=== PATIENT | male | born 1955 | race Hispanic/Latino ===

== ENCOUNTER → 2017-04-07 | Day surgery (SDC) | payer OTHER ==
[~2017-04-07] VITALS: Ht 162.6 cm; Wt 81.0 kg
[~2017-04-07] MED LIST: HYDR-3825 PO; IBUP800T28 PO; OMEP20TA86 PO; PRED50TA PO; Sodium Chloride LOK Flush 10 mL Syringe IV PRN; fentaNYL-PF 50 mCg/mL 2 mL Inj IVPUSH PRN
[2017-04-07 09:34] VITALS: BP 110/69; PULSE 64; RESP 16; O2SAT 95
[2017-04-07] MEDS: 0.9% Sodium Chloride 1,000 ML IV SCH ×3 (10:12→10:34)
[2017-04-07 10:42] VITALS: BP 97/67; PULSE 60; RESP 16; O2SAT 95
[2017-04-07 10:52] VITALS: BP 95/61; PULSE 56; RESP 14; O2SAT 95
[2017-04-07 11:02] VITALS: BP 106/65; PULSE 66; RESP 16; O2SAT 97
--- NOTE | 2017-04-07 14:18 | ENDO ---
[address] [address] ENDOSCOPY PROCEDURE PATIENT: MAR BECKER : 1955 MR#: [id number] ADMIT: 04/07/2017 JOB ID: [id number] DATE OF SERVICE: 04/07/2017 TYPE OF OPERATION: Esophagogastroduodenoscopy with biopsy, and colonoscopy. Hot snare polypectomy x2. PREOPERATIVE DIAGNOSIS: History of Schrader esophagus and tubular adenoma polyps. POSTOPERATIVE DIAGNOSES: 1. Irregular Z-line, status post biopsy. 2. There were two 1-cm polyp seen in the sigmoid colon, 1 cm each, removed by hot snare polypectomy. ANESTHESIA: Fentanyl 75 mcg, Versed 5 mg IV administered. COMPLICATIONS: None. BLOOD LOSS: Minimal. DESCRIPTION OF PROCEDURE: After risks and benefits explained to the patient, informed consent was obtained. After anesthesia administered, upper endoscope was then inserted into mouth, intubated into the esophagus, stomach, second portion of duodenum. Mucosa carefully examined. After procedure was done, the scope was withdrawn, procedure terminated. A colonoscope was then inserted from the rectum to the cecum. Mucosa carefully examined. Prep of the patient was excellent. After the procedure was done, scope was withdrawn and the procedure terminated. FINDINGS: On inspection of the esophagus, esophagus appeared normal except for an irregular Z-line at the distal esophagus. Z-line located at 32 cm from incisors. Upon entering stomach, the stomach appeared normal without masses, ulcers, or lesions. Retroflexion was normal. Duodenal bulb, first and second portion normal. Biopsy taken of antrum, body, and four quadrant biopsies of the distal esophagus. Upon inspection of the anus, no masses, hemorrhoids, ulcers, fissures were seen throughout the entire examination. There were two polyps that were seen, 1 cm each, in the sigmoid colon, both removed by hot snare polypectomy. No other polyps or masses were seen. Retroflexion was normal. IMPRESSION: 1. Irregular Z-line, status post four quadrant biopsies. 2. Two polyps in the sigmoid colon, measuring 1 cm each, removed by hot snare polypectomy. RECOMMENDATIONS: 1. Await pathology results. 2. Repeat colonoscopy in one year. 3. Avoid NSAIDs for at least one week. 4. Follow up in GI clinic as needed.
--- NOTE | 2017-04-14 06:54 | PATH ---
SURGICAL PATHOLOGY Attending Physician:Eros Hernandez MD CASE STATUS: Signed Out PATIENT NAME: MAR BECKER PID: [id number] : 1955 DATE COLLECTED:04/07/2017 18:43 SPECIMEN: 1: Stomach, Antrum, Biopsy 2: Gastric, Biopsy 3: Esophagus, Biopsy 4: Colon, Polyp CLINICAL HISTORY: 1). ANTRUM BIOPSY, RULE OUT H PYLORI 2). GASTRIC BODY BIOPSY, RULE OUT H PYLORI 3). DISTAL ESOPHAGUS BIOPSY 4). SIGMOID COLON POLYP FINAL DIAGNOSIS: 1. Stomach, Antrum, Biopsy: Antral mucosa with no diagnostic abnormality. Negative for Helicobacter organisms. Negative for intestinal metaplasia. Negative for dysplasia and malignancy. 2. Stomach, Body, Biopsy: Body-type mucosa with no diagnostic abnormality. Negative for Helicobacter organisms. Negative for intestinal metaplasia. Negative for dysplasia and malignancy. 3. Distal Esophagus, Biopsy: Squamocolumnar junctional mucosa with specialized intestinal metaplasia consistent with Schrader's esophagus. Negative for dysplasia or malignancy. 4. Sigmoid Colon, Polyp, Biopsy: Tubular adenoma. ICD10: K22.70 D12.5 GROSS DESCRIPTION: The specimen is received in four formalin filled containers labeled with the patient's name. 1). The specimen is labeled "antrum" and consists of 2 portions of tissue which aggregate to 0.3 x 0.3 x 0.2 CM. The specimen is entirely submitted in cassette 1A. 2). The specimen is labeled "gastric body" and consists of 3 tiny portions of tissue which aggregate to 0.2 x 0.2 x 0.2 CM. The specimen is entirely submitted in cassette 2A. 3). The specimen is designated per client "distal esophagus" and consists of 2 portions of tissue which aggregate to 0.2 x 0.2 x 0.2 CM. The specimen is entirely submitted in cassette 3A. 4). The specimen is labeled "sigmoid colon polyp" and consists of 2 portions of tissue which aggregate to 1.0 x 0.7 x 0.6 CM. The specimen is sectioned into multiple pieces and entirely submitted in cassette 4A. 04/09/2017CA ICD-9 CODES: CPT CODES: 1: 88282 2: 38768 3: 25846 4: 46426 Electronically Signed Out Shari Crow MD [facility] [address], [place] [address] Technical component performed at [facility], [address], [place], [address]
== END | disposition home or self-care (01) ==
LOC: END 00:30
PROVIDERS: ATTEND Internal Medicine Gastroenterology
DX: Z12.11 Encounter for screening for malignant neoplasm of colon (principal); D12.5 Benign neoplasm of sigmoid colon; Z86.010 Personal history of colon polyps; K22.70 Barrett's esophagus without dysplasia; K21.9 Gastro-esophageal reflux disease without esophagitis
CPT/HCPCS: 43239; 45385; 99153; G0500; J2250; J3010; J7030